=== PATIENT | male | born 1985 | race Caucasian/White ===

== ENCOUNTER → 2022-04-03 | Outpatient (CLI) | payer OTHER | LOC: MHCPAIN 10:32 | DX: M54.81 Occipital neuralgia (principal); R51.9 Headache, unspecified; G89.29 Other chronic pain | CPT/HCPCS: G0463 ==

== ENCOUNTER → 2022-04-10 | Outpatient (CLI) | payer OTHER | LOC: MHCPAIN 14:30 | DX: M54.81 Occipital neuralgia (principal); M54.2 Cervicalgia; R51.9 Headache, unspecified | CPT/HCPCS: J1040; J1100 ==

== ENCOUNTER → 2022-12-17 | Outpatient (CLI) | payer OTHER | LOC: MHCPAIN 10:48 | DX: M54.81 Occipital neuralgia (principal); R51.9 Headache, unspecified | CPT/HCPCS: G0463 ==

== ENCOUNTER → 2022-12-18 | Outpatient (CLI) | payer OTHER | LOC: MHCPAIN 12:58 | DX: M54.81 Occipital neuralgia (principal); R51.9 Headache, unspecified; G89.29 Other chronic pain | CPT/HCPCS: J1040 ==

== ENCOUNTER → 2023-08-13 | Outpatient (CLI) | payer OTHER | LOC: MHCPAIN 11:05 | DX: M54.81 Occipital neuralgia (principal); M54.12 Radiculopathy, cervical region; G44.86 Cervicogenic headache | CPT/HCPCS: J0665; J1040 ==

== ENCOUNTER → 2023-12-30 | Outpatient (CLI) | payer OTHER | LOC: MHCPAIN 10:08 | DX: M54.81 Occipital neuralgia (principal); G44.86 Cervicogenic headache | CPT/HCPCS: J0665; J1040 ==

== ENCOUNTER → 2024-05-18 | Outpatient (CLI) | payer OTHER | LOC: MHCPAIN 09:23 | DX: M54.81 Occipital neuralgia (principal); M54.2 Cervicalgia | CPT/HCPCS: J0665; J1010 ==

== ENCOUNTER → 2024-08-17 | Outpatient (CLI) | payer OTHER | LOC: MHCPAIN 12:28 | DX: M54.81 Occipital neuralgia (principal); R51.9 Headache, unspecified; G89.29 Other chronic pain | CPT/HCPCS: J0665; J1010 ==